=== PATIENT | female | born 1960 | race Caucasian/White ===

== ENCOUNTER 2018-10-09 13:31 | Observation (INO) | payer MEDICARE, MEDICAID ==
[2018-10-09 16:38] VITALS: BMI 37.8
[2018-10-09] MEDS ORDERED: Acetaminophen 325 MG TAB PO PRN (17:03)
[2018-10-09] MEDS ORDERED: Temazepam 15 MG CAP PO PRN (17:08)
--- NOTE | 2018-10-09 18:05 | HP ---
DATE OF ADMISSION: 10/09/2018. PRIMARY CARE PHYSICIAN: None. CHIEF COMPLAINT: Multiple falls. HISTORY OF PRESENT ILLNESS: Patient is a pleasant 57-year-old female who presented to the [facility] ER earlier today with a history of multiple falls. She reports that she gets off balance as she is bending over to do things and is falling. Denies any dizziness. Denies any chest pain. Reports that she does have a previous history of multiple sclerosis and a previous stroke and has some residual mild left-sided weakness. She reports that she was seeing a neurologist when she lived in [place], but she moved to [place] in August and is yet to find a neurologist locally. Reports at least 6 falls in the last week. Denies any loss of consciousness. She was sent to [facility] for admission and MRI as [facility] does not have that capability. Also sent here for a Neurology consult. PAST MEDICAL HISTORY: Includes a diagnosis of multiple sclerosis in 1995, right -sided CVA in 2011 with some mild right-sided deficits reports a diagnosis of a seizure disorder, although she does not take any medications for seizures, reports right knee meniscus repair [address] Guido, reports hypertension, reports that she has 100% blockage on her left carotid. Reports urinary incontinence. Reports history of gallstones. PAST SURGICAL HISTORY: Reports knee surgery by Dr. Guido 2 months ago, gastric bypass in 2003. FAMILY HISTORY: Mother has a history of diabetes type 2. Cardiac history including an [place] and heart failure. Father history of diabetes type 2. Brother , significant for alcohol abuse. She has no children. CURRENT MEDICATIONS: Include aspirin 81 mg p.o. daily, clonidine 0.1 mg once a day, gabapentin 800 mg 3 times a daily, lisinopril 10 mg p.o. daily, metoprolol 25 mg half tablet 2 times a day, Celexa 10 mg p.o. daily, naproxen 500 mg b.i.d. , Topamax 50 mg b.i.d., Ultram 50 mg as needed, Restoril 50 mg once a day at bedtime, Benadryl 25 mg once a day at bedtime, Detrol 2 mg b.i.d., potassium gluconate 595 mg once a day, Tessalon Perles t.i.d. p.r.n. cough. ALLERGIES: LORTAB, OXYCODONE, SULFA. REVIEW OF SYSTEMS: GENERAL: The patient denies chills or fever. EYES: Denies any vision changes. ENT: Denies any nose, throat, ear pain, or changes. CARDIOVASCULAR: Denies any chest pain or palpitations. RESPIRATORY: Denies any cough or shortness of breath. GASTROINTESTINAL: Denies any abdominal pain, constipation, or diarrhea. MUSCULOSKELETAL: Reports multiple falls. SKIN: Denies any skin changes or rashes. NEUROLOGIC: Denies any focal weakness. Denies any paresthesias. ENDOCRINE: Denies any negative review of systems. PSYCH: Negative review of systems. Otherwise, all other review of systems is negative, unless listed in the HPI. PHYSICAL EXAMINATION: VITAL SIGNS: Blood pressure 170/110, pulse 58, respiratory rate 16, temperature 98.2, pulse ox 99 on room air. GENERAL: Patient is in no apparent distress. HEENT: Head is atraumatic, normocephalic. Eyes: Eyelids are normal to inspection. Pupils are equally round and reactive to light. Extraocular muscles are intact. Horizontal nystagmus present. ENT: Nose exam is normal. No nasal deformity. Pharynx is normal. Mucous membranes are moist. NECK: Normal range of motion. Trachea is midline. RESPIRATORY/CHEST: Breath sounds are clear. No wheezing. No rales. CARDIOVASCULAR: Normal rate and rhythm. Heart sounds are normal. ABDOMEN: nontender on palpation. Bowel sounds are normal. No peritoneal signs. BACK: Normal range of motion. No CVA tenderness. EXTREMITIES: Upper extremity, normal range of motion. Motor strength is slightly weaker on the right arm which patient reports is chronic. Lower extremity, normal range of motion. Motor strength slightly weaker in the right leg which is also chronic. NEUROLOGIC: Patient is oriented to person, place, and time. Speech is normal. Focal deficits include the slight weakness in the right arm and right leg which is chronic, mild horizontal nystagmus which is present ASSESSMENT AND PLAN: 1. Multiple falls, most likely related either to an multiple sclerosis flare, possible transient ischemic attack. We will order an MRI of the brain. We will also obtain Neurology consult. 2. Hypertension. We will continue home medication. 3. Urinary incontinence. We will continue home medication. We will begin GI and DVT prophylaxis. Hospital course will depend on clinical findings. LILIANA
[2018-10-09] MEDS: Famotidine 20 MG TAB PO SCH (21:40)
[2018-10-10] MEDS ORDERED: traMADol HCl 50 MG TAB PO PRN (03:23)
[2018-10-10 06:19] LABS: #Eosinphils 0.2 thou/uL (0.0-0.7); #Lymphocytes 1.1 thou/uL (1.20-3.40); #Monocytes 0.5 thou/uL (0.11-0.59); #Neutrophils 3.8 thou/uL (1.40-6.50); %Basophils 0.4 % (0.0-1.0); %Eosinophils 2.7 % (0.0-10.0); %Lymphocytes 19.5 % (21.0-51.0); %Monocytes 8.3 % (0.0-10.0); Hemoglobin 12.8 g/dL (12.0-16.0); Mean Corpuscular HGB CONC 30.2 g/dL (32.0-36.0); Mean Corpuscular Volume 86.3 fL (78.0-98.0); Mean Platelet Volume 7.7 fL (7.4-10.4); Platelet Count 356 thou/uL (130-400); RBC Distribution Width 15.8 % (11.5-14.5); White Blood Cell (WBC) Count 5.6 thou/uL (4.8-10.8)
[2018-10-10 06:28] LABS: Anion Gap 13 mmol/L (10-20); BUN (Urea Nitrogen) 7 mg/dL (9.8-20.1); Calc. Creatinine Clearance 132 mL/min (70-130); Calcium 9.2 mg/dL (7.8-10.44); Carbon Dioxide 22 mmol/L (22-29); Chloride 109 mmol/L (98-107); Estimated GFR-MDRD 78; Glucose 108 mg/dL (70-105); Potassium 3.8 mmol/L (3.5-5.1); Sodium 140 mmol/L (136-145)
[2018-10-10] MEDS: Famotidine 20 MG TAB PO SCH ×2 (09:35→20:05)
--- NOTE | 2018-10-10 12:28 | ULT ---
CAROTID ULTRASOUND WITH GRAYSCALE AND DOPPLER DUPLEX COLORFLOW IMAGING SPECTRAL ANALYSIS PERFORMED: CLINICAL INDICATION: History of left carotid stenosis and vascular disease with history of falls. FINDINGS: There is scattered atherosclerotic plaque, some of which is calcified, producing shadowing, which luevano s limit assessment for the velocities. PEAK SYSTOLIC VELOCITY (CM/S): Right CCA 64 Left CCA 37 Right ICA 49 Left ICA 31 There is antegrade flow within the visualized bilateral vertebral arteries. IMPRESSION: 1. No hemodynamically significant stenosis of the right internal carotid artery. 2. No hemodynamically significant stenosis of the left internal carotid artery. POS: DAGOBERTO
--- NOTE | 2018-10-10 12:45 | MRI ---
MRI BRAIN WITH AND WITHOUT CONTRAST: HISTORY: Possible multiple sclerosis FLAIR. Multiple falls. COMPARISON: None. FINDINGS: No hemorrhage on the axial gradient echo sequence. Calvarium has a normal marrow signal intensity. Midline brain parenchymal structures are unremarkabl e. No parenchymal mass, mass effect, or midline shift. Brain volume is age appropriate. There are jez cic and gliotic changes involving the left cerebrum white matter due to remote insult. There is asso ciated T2 and FLAIR hyperintensity. Additionally, there are areas of T2 and FLAIR white matter hyper intensity. The distribution does favor demyelinating process. No restricted diffusion or enhancemen t to suggest active demyelination. Visualized cervical cord does not demonstrate any abnormal enhancement. Central arterial flow voids are maintained. Absent restricted diffusion. Adequate aeration of the sinuses and mastoid air cells. IMPRESSION: 1. White matter hyperintensities, without associated enhancement or restricted diffusion. No eviden ce of active demyelination. 2. Malacic and gliotic change involving the left centrum semiovale likely due to remote insult. POS: [facility]
[2018-10-10 16:14] VITALS: TEMP 98.7
[2018-10-10] MEDS ORDERED: cloNIDine 0.1 MG TAB PO SCH (20:00)
[2018-10-10] MEDS ORDERED: hydrALAZINE 25 MG TAB PO SCH (20:00)
--- NOTE | 2018-10-10 20:51 | CON ---
DATE OF CONSULTATION: 10/10/2018 CONSULTING PHYSICIAN: Hospitalist Service. IMPRESSION: 1. History of trigeminal neuralgia. 2. History of multiple sclerosis with chronic ataxia. 3. Probable accentuated ataxia secondary to Neurontin. PLAN: 1. Discontinue Neurontin. 2. Trileptal 300 mg twice a day, titrate as needed for pain control. 3. Rehab transfer. HISTORY OF PRESENT ILLNESS: Ms. Root is a 57-year-old white female who reports having neurologic sy mptoms dating back to 1996, she developed trigeminal neuralgia type pain. She underwent a workup at that time in [place] and was subsequently diagnosed with multiple sclerosis. She apparently develope d ataxia sometime following the neuralgia, but it is uncertain as to the onset time. Her symptoms gracia ve been persistent over the years. She was put on the gabapentin for management of the trigeminal ne uralgia. Her dose has been increased steadily for pain control over the last several months. She gracia s been having increased falls in that necessitated for coming to the emergency room for evaluation. She had routine lab work that was unremarkable. Her MRI of the brain showed periventricular white ma tter lesions on the left more so than the right with evidence of black hole formation. There was no active demyelination or acute ischemic change. Carotid ultrasound is clear. PAST MEDICAL HISTORY: Otherwise, negative. SOCIAL HISTORY: Unremarkable. ALLERGIES: OXYCODONE, SULFA, HYDROCODONE. MEDICATIONS: Medication list was reviewed. REVIEW OF SYSTEMS: Otherwise, negative for headache, nausea, vomiting, vertigo, difficulty swallowin g, difficulty speaking, double vision, chest pain or shortness of breath. PHYSICAL EXAMINATION: GENERAL: She is a well-nourished middle-aged woman in no distress. VITAL SIGNS: Stable. She is afebrile. HEENT: Within normal limits. NECK: Supple. NEUROLOGIC: She is alert and appropriate. Her speech is fluent and clear. Cranial nerves are intac t. Motor exam shows equal strength. No tremor dysmetrias present. Sensation is equal to touch. Sh e can walk with use of a walker. SUMMARY: This is a 57-year-old woman with a history of chronic ataxia secondary to probable multiple sclerosis. This is likely worsened by the higher doses of Neurontin. Hopefully, a change of medica tion, we will correct the situation. We happy to follow up with her as an outpatient.
[2018-10-10 22:24] VITALS: BP 137/94
--- NOTE | 2018-10-11 11:19 | DIS ---
DATE OF ADMISSION: 10/09/2018 DATE OF DISCHARGE: 10/10/2018 PRIMARY CARE PHYSICIAN: Dr. Hogue in [place]. CONSULTANTS: Dr. Dandre Fernandez PROCEDURES: The patient had a brain MRI that showed white matter hyperintensities without associated enhancement or restricted diffusion. No evidence of active demyelination. The patient also had a carotid Doppler study which showed no hemodynamically significant stenosis of either internal carotid artery. DISCHARGE DIAGNOSES: 1. Chronic ataxia in relation to a history of multiple sclerosis. 2. Probable accentuated ataxia secondary to Neurontin. 3. History of trigeminal neuralgia. 4. Hypertension. 5. Urinary incontinence. 6. History of right-sided cerebrovascular accident. REVIEW OF SYSTEMS: GENERAL: The patient denied any chills or fever. EYES: Denied any vision changes. ENT: Denied any nose, throat, ear pain or hearing changes. CARDIOVASCULAR: Denied any chest pain or palpitations. RESPIRATORY: Denied any cough or shortness of breath. GASTROINTESTINAL: Denied any abdominal pain, constipation, diarrhea, or vomiting. MUSCULOSKELETAL: Does report multiple falls. Denies hitting her head. SKIN: Denies any skin changes. Does have some ecchymosis in various age to extremities. NEUROLOGIC: Denies any focal weakness. Denies any paresthesias. ENDOCRINE: Denies any changes, negative review of systems. PSYCHIATRIC: Also negative. All other review of systems are negative, unless mentioned in the hospital course. PHYSICAL EXAMINATION: VITAL SIGNS: Temperature 98.2, pulse 66, respirations 16, blood pressure 163/ 94. Pulse ox 96% on room air. GENERAL: The patient is in no apparent distress. She is lying comfortably on the bed. HEENT: Head is atraumatic, normocephalic. Eyes: Eyelids are normal to inspection. Pupils are equally round and reactive to light. Extraocular muscles are intact. Horizontal nystagmus is present. ENT: Mucous membranes are moist. NECK: Normal range of motion. Trachea is midline. RESPIRATORY: Breath sounds are clear bilaterally. No wheezes, no rales noted. CARDIOVASCULAR: Normal rate and rhythm. Heart sounds are normal. ABDOMEN: Nontender on palpation. Bowel sounds are heard in all quadrants. No peritoneal signs. BACK: Normal range of motion. No CVA tenderness. EXTREMITIES: Upper extremities, normal range of motion. Motor strength is slightly weaker on the right arm 4/5, lower extremity normal range of motion. Motor strength is 4/5 on the right leg. NEUROLOGIC: The patient is oriented to person, place and time. Speech is normal. Focal deficits include slight weakness in the right leg and arm which is chronic, nystagmus which is present and horizontal. HOSPITAL COURSE: The patient reported to the emergency room in [place] on 10/09/2018 complaining of multiple falls. She reported that she was getting off balance primarily when she was bending over to pick things up. She denied any dizziness. She denied any chest pain. She does have a history of multiple sclerosis and a previous stroke and has some residual right-sided weakness. She reports that she was seeing a neurologist when she lived in [place], but when she moved to the [facility] in [place], she has not found a neurologist locally. She did report about 6 falls in the last week. Denies any loss of consciousness, denies hitting her head. She was admitted to the observation unit after being transferred to [facility] ER where we obtained an MRI of her brain and Dr. Fernandez of Neurology was consulted. He suspected that the dizziness and multiple falls were due to her Neurontin that she took every day, so he discontinued that and we added Trileptal. The patient was amenable to inpatient rehab after being discharged here for more extensive physical therapy and occupational therapy. The patient remained stable. Vital signs were stable and the patient was discharged here to the inpatient rehabilitation [facility]. The patient will be sent to the rehab with current home medications including aspirin 81 mg p.o. daily, Klonopin 0.1 mg once a daily, lisinopril 10 mg p.o. daily, metoprolol 25 mg 1/2 tab 2 times a day, Celexa 10 mg p.o. daily, naproxen 500 mg b.i.d., Topamax 50 mg b.i.d., Ultram 50 mg as needed, Restoril 15 mg once a day at bedtime, Benadryl 25 mg once a day at bedtime as needed, Detrol 2 mg b.i.d., potassium gluconate 595 mg once a day, Tessalon Perles t.i.d. as needed for cough. She was discontinued on her gabapentin. Dr. Fernandez added Trileptal 300 mg p.o. b.i.d. ALLERGIES: She has allergies to LORTAB, OXYCODONE and SULFA. The patient's condition on discharge was stable. DISCHARGE INSTRUCTIONS: The patient will be discharged to inpatient rehab at [facility], do a referral. She is to see Dr. Swartz in [place] after being released from the rehab and also to follow up with Dr. Fernandez at his earliest convenience appointment. LILIANA
== END 2018-10-10 21:03 ==
LOC: ERS 13:31 → 2SW 16:31
PROVIDERS: ADMIT Family Medicine; ATTEND Family Medicine
DX: G35 Multiple sclerosis (principal); R27.0 Ataxia, unspecified; I69.351 Hemiplegia and hemiparesis following cerebral infarction affecting right dominant side; G40.909 Epilepsy, unspecified, not intractable, without status epilepticus; I10 Essential (primary) hypertension; R32 Unspecified urinary incontinence; Z91.81 History of falling; Z79.01 Long term (current) use of anticoagulants; Z79.1 Long term (current) use of non-steroidal anti-inflammatories (NSAID); Z79.82 Long term (current) use of aspirin; Z79.899 Other long term (current) drug therapy; Z88.2 Allergy status to sulfonamides; Z88.5 Allergy status to narcotic agent; Z88.8 Allergy status to other drugs, medicaments and biological substances
CPT/HCPCS: 70553; 80048; 85025; 93880; 97116; 97139; 99285; G0378 ×2; G8978; G8979; G8987; G8988; 36415; G8996-GN-CH; G8997-GN-CH

== ENCOUNTER 2018-11-20 14:34 | Inpatient (IN) | payer MEDICARE, MEDICAID ==
[2018-11-20] MEDS ORDERED: levETIRAcetam 500 MG/100 ML PREMIX BAG ONE (14:38)
[2018-11-20 14:59] LABS: #Basophils 0.1 thou/uL (0.0-0.2); #Lymphocytes 1.1 thou/uL (1.20-3.40); #Monocytes 0.6 thou/uL (0.11-0.59); #Neutrophils 7.5 thou/uL (1.40-6.50); %Basophils 0.6 % (0.0-1.0); %Eosinophils 0.5 % (0.0-10.0); %Lymphocytes 11.4 % (21.0-51.0); %Monocytes 6.3 % (0.0-10.0); %Neutrophils 81.3 % (42.0-75.0); Hemoglobin 12.6 g/dL (12.0-16.0); Mean Corpuscular HGB CONC 32.7 g/dL (32.0-36.0); Mean Corpuscular Hemoglobin 28.1 pg (27.0-31.0); Mean Corpuscular Volume 86.2 fL (78.0-98.0); Mean Platelet Volume 6.5 fL (7.4-10.4); Platelet Count 364 thou/uL (130-400); RBC Distribution Width 13.9 % (11.5-14.5); Red Blood Cell (RBC) Count 4.49 mill/uL (4.20-5.40); White Blood Cell (WBC) Count 9.2 thou/uL (4.8-10.8)
[2018-11-20] MEDS ORDERED: hydrALAZINE 20 MG/ML VIAL ONE (15:01)
[2018-11-20 15:03] LABS: INR-International Normal Ratio 1.1; Prothrombin Time 13.8 SEC (12.0-14.7)
[2018-11-20 15:05] LABS: Actual Bicarbonate (HCO3a) 16.9 mEq/L (22-28); Analyzer IN Cardio ER; Base Excess (BEa) -6.1 mEq/L (-2.0 to +3.0); CO2 Tension 26.5 mmHg (35.0-45.0); Calcium, Ionized 0.99 mmol/L (1.12-1.30); Carboxyhemoglobin (COHb) 0.3 gm% (0.0-3.0); Hemoglobin (Hb) 11.9 g/dL (12.0-16.0); O2 Tension (PaO2) 472.7 mmHg (80.0-100.0); Potassium - ABG Lab 2.96 mmol/L (3.70-5.30); pH, Arterial 7.42 (7.35-7.45)
[2018-11-20] MEDS ORDERED: manNITOL 20% 0 ML ONE (15:11)
[2018-11-20] MEDS ORDERED: manNITOL 20% 500 ML ONE (15:12)
[2018-11-20 15:15] LABS: ALT (SGPT) 10 U/L (8-55); AST (SGOT) 22 U/L (5-34); Albumin 3.3 g/dL (3.5-5.0); Alkaline Phosphatase 153 U/L (40-150); Anion Gap 16 mmol/L (10-20); BUN (Urea Nitrogen) 9 mg/dL (9.8-20.1); Bilirubin, Total 0.4 mg/dL (0.2-1.2); Calc. Creatinine Clearance 0 mL/min (70-130); Calcium 8.6 mg/dL (7.8-10.44); Carbon Dioxide 14 mmol/L (22-29); Chloride 98 mmol/L (98-107); Estimated GFR-MDRD 60; Globulin 3.4 g/dL (2.4-3.5); Glucose 179 mg/dL (70-105); Lipase 11 U/L (8-78); Potassium 3.2 mmol/L (3.5-5.1); Protein, Total 6.7 g/dL (6.0-8.3); Sodium 125 mmol/L (136-145)
--- NOTE | 2018-11-20 15:55 | RAD ---
PORTABLE AP CHEST XRAY: DATE: 11/20/2018. HISTORY: Intubation and central line placement. COMPARISON: Chest x-ray from [facility] 11/20/2018. FINDINGS: Endotracheal tube remains in place, but the tip of the endotracheal tube overlies the origin of the r ight mainstem bronchus and should be withdrawn by approximately 1.5 cm. Right subclavian central mylene ous catheter is noted in place with tip overlying the expected location of the SVC. Nasogastric tube is noted in place, a portion of which is coiled overlying the neck, and the tip overlies the distal esophagus. Nasogastric tube should also be readjusted and advanced into the stomach. Cardiac silhouette is magnified by projection. Pulmonary vasculature is within normal limits. The l ungs are clear. Remote left-sided rib fracture is present. IMPRESSION: 1. Endotracheal tube in place which is overlying the origin of the right mainstem bronchus and shoul d be withdrawn. 2. Nasogastric tube in place, but the tip overlies the distal esophagus should be advanced. 3. Right subclavian central venous catheter in place without evidence of pneumothorax. 4. No acute cardiopulmonary process. 5. Remote left-sided rib fracture. 6. The above findings were discussed with Dr. Marie in the emergency department on 11/20/2018 at 150 3 hours. CODE CR POS: DAGOBERTO
--- NOTE | 2018-11-20 16:38 | HP ---
ATTENDING SURGEON: Dr. Chavarria. CONSULTATION: Neurosurgery, Dr. Gillis. HISTORY OF PRESENT ILLNESS: The patient is a 57-year-old female with a history of multiple sclerosis and a previous stroke, who up until 3 weeks ago was on Eliquis, who reportedly fell from her wheelchair while at a senior care. The patient was being brought to the emergency department in [place], when just prior to the arrival, the patient started to have altered mental status and went from GCS of 15 into a decline, which eventually led to a seizure and becoming a GCS of 3. The patient underwent evaluation, examination there and was noted to have a large subdural hematoma with posttraumatic subarachnoid bleed. She was flown here to our facility for evaluation and resuscitation and we were asked to see her as a level 1 trauma. The majority of this information was gleaned from previous medical records. There are no family available at this time. ALLERGIES: HYDROCODONE AND OXYCODONE. CURRENT MEDICATIONS: Unknown. PAST MEDICAL HISTORY: Multiple sclerosis, right-sided CVA in 2011, seizure disorder, hypertension, carotid insufficiency with one report saying 100% blockage on her left carotid. SURGICAL HISTORY: Gastric bypass and right knee surgery. FAMILY MEDICAL HISTORY: Diabetes, coronary artery disease. SOCIAL HISTORY: Again, the patient is a senior care resident. There is no reported history of drug, tobacco, or alcohol use. PHYSICAL EXAMINATION: VITAL SIGNS: Blood pressure 128/88, respirations 22, oxygen saturations 100% on the ventilator, heart rate 78, temperature is 97.0. Of note, the patient's blood pressure from the time of arriving at [place] ER has had a systolic as high as in the 200s and as low as 60. Since being in our facility, she again has had a very labile blood pressure at times and requiring a short dose of vasopressors and fluid boluses, and other times, again markedly elevated, but not requiring any further treatment. GENERAL: The patient is lying in the ER bed, intubated with an orogastric tube in place. She has been a GCS 3T since her arrival. HEENT: Head is normocephalic and atraumatic. Eyes, pupils are fixed and dilated. Nose is atraumatic without discharge. Ears are atraumatic without discharge. Oropharynx, an OG tube and an ET tube are in place. NECK: Trachea is in midline. No JVD. CHEST: Clear to auscultation with clear breath sounds bilaterally. HEART: Regular rate and rhythm. ABDOMEN: Soft, flat, with hypoactive bowel sounds. PELVIS: Stable. EXTREMITIES: Capillary refill is less than 3 seconds. Pulses are 2+. BACK: Atraumatic and nontender. LABORATORY RESULTS: White blood cell count 9.2, hemoglobin 12.6, hematocrit 38.7, platelets 364. Sodium 125, potassium 3.2, chloride 98, CO2 of 14, BUN 9, creatinine 0.95, glucose 179. LFTs are unremarkable. PTT 22, PT 14, INR 1.1. Lipase 11. RADIOGRAPHIC FINDINGS: CT of the brain without contrast shows a large right cerebral convexity subdural hematoma and associated posttraumatic subarachnoid hemorrhage. There is a shift to the midline structures by at least 2 cm right to left. There is uncal herniation. There is no evidence of fracture. CT of the C-spine without contrast shows degenerative changes of the cervical spine. No acute osseous abnormalities are demonstrated. AP chest shows no acute findings. Endotracheal tube is in place. ASSESSMENT: 1. Status post fall. 2. Large subdural hematoma with 2 cm midline shift and posttraumatic subarachnoid hemorrhage. 3. Respiratory failure requiring full mechanical ventilatory support. 4. History of previous stroke. 5. History of multiple sclerosis. PLAN: Plan will be to admit the patient to the surgical floor. Continue full mechanical ventilatory support. Mannitol was initiated in the emergency department. Per consultation with Neurosurgery and review of her CT and physical exam findings, it was determined that this is very likely a nonsurvivable injury and is nonoperative in nature. We will continue medical management and discuss with family further treatment and care. The evaluation, examination, laboratory, and radiographic findings were done with Dr. Chavarria in the emergency department as he was here prior to the patient's arrival. Job ID: [id number]
[2018-11-20] MEDS ORDERED: Dextrose 5% in Water 1,000 ML IV PRN (17:10)
[2018-11-20] MEDS ORDERED: Dextrose 50% Abboject 50 ML SYRINGE SLOW IVP PRN (17:10)
[2018-11-20] MEDS ORDERED: Ondansetron ODT 4 MG TAB PO PRN (17:10)
[2018-11-20] MEDS ORDERED: Ondansetron PF 4 MG/2 ML Vial IVP PRN (17:10)
[2018-11-20 17:30] LABS: ALV-art Gradient 207.175 (0-20); Puncture Site L.B.
[2018-11-20] MEDS: Sodium Chloride 0.9% 1,000 ML IV SCH (18:04)
[2018-11-20 18:31] LABS: Sodium 127 mmol/L (136-145)
[2018-11-20 18:33] VITALS: BMI 34.0
[2018-11-20] MEDS ORDERED: Potassium Chloride 40 MEQ in Premix Bag 1 BAG IVPB SCH (20:00)
[2018-11-20] MEDS: hydrALAZINE 20 MG/ML VIAL SLOW IVP PRN (20:10)
--- NOTE | 2018-11-20 20:54 | CON ---
DATE OF CONSULTATION: 11/20/2018 HISTORY OF PRESENT ILLNESS: The patient is a 57-year-old female with a past medical history of multiple sclerosis and prior CVA with right-sided deficits, who lives at the retirement and was transferred to our facility following evaluation for head injury with acute right subdural hematoma. shelter reports approximately 2 hours ago, the patient was trying to stand up out of her wheelchair when she suddenly fell forward striking her head on the ground. She was transitioned to the [place] ER for further evaluation. Shortly after her arrival her neurologic exam began to decline, and she became unresponsive. She required intubation at that time. The patient also had seizure activity and was given [address] head was done on arrival, which showed a large right-sided subdural hematoma with mass effect and midline shift. She was previously taking Eliquis for her prior CVAs, but reportedly stopped this medication 3 weeks ago. She does take aspirin daily and was treated with TXA prior in the [place] ER. She was also given rocuronium and 300 mcg of fentanyl prior to intubation. I am seeing the patient upon arrival to the [facility] ER. The patient currently has a GCS of 3. She is intubated. No eye opening. No motor response is appreciated. She has no gag reflex and was not overbreathing on the ventilator. Both pupils are fixed and dilated. She has been started on 100 g of mannitol, which is currently running, ordered by the Trauma Service. There was also establishing central line on my arrival. PAST MEDICAL HISTORY: Multiple sclerosis, prior CVA with residual right-sided deficits, seizure disorder, hypertension. PAST SURGICAL HISTORY: Right knee surgery, gastric bypass. FAMILY HISTORY: Noncontributory. SOCIAL HISTORY: The patient lives at the retirement. She does not smoke, drink, or use any drugs. ALLERGIES: SHE IS ALLERGIC TO HYDROCODONE, LORTAB, OXYCODONE, AND SULFA. REVIEW OF SYSTEMS: Unobtainable. PHYSICAL EXAMINATION: VITAL SIGNS: BP is 157/96. The patient is currently being mechanically ventilated. She is 100% on the ventilator. Pulse 77. CONSTITUTIONAL: The patient is in significant distress. She is unresponsive. She has a GCS of 3. HEENT: Head, normocephalic, atraumatic. Eyes, pupils are fixed, dilated and nonreactive. ENT, endotracheal tube is in place. No gag reflex is appreciated. CARDIAC: Regular rate and rhythm. RESPIRATORY: She has symmetric chest expansion and is currently being mechanically ventilated. MUSCULOSKELETAL: No obvious deformities. She has no motor response to noxious stimuli. NEUROLOGIC: The patient has GCS of 3. She is otherwise unresponsive. ASSESSMENT AND PLAN: This is a 57-year-old female with past medical history of multiple sclerosis and prior cerebrovascular accident, currently taking aspirin daily, who suffered a mechanical fall from her wheelchair and was found to have a large right-sided subdural hematoma with significant amount of midline shift and also scattered subarachnoid hemorrhage. I discussed the patient's presentation, exam and imaging with Dr. Gillis. He also reviewed these images. Unfortunately, the patient has suffered an extensive intracranial event. Considering this extensive event and this is unlikely to be survivable,and we are not recommending any acute neurosurgical intervention. We will continue to support the patient medically and patient will be transitioned to the Critical Care floor. The family will be mobilized and Dr. Gillis will meet with them to discuss end of life care further. Job ID: [id number] [facility]
--- NOTE | 2018-11-20 21:45 | CON ---
DATE OF CONSULTATION: CONSULTING PHYSICIAN: Trauma Service. REASON FOR CONSULTATION: Critical care and ventilator management. HISTORY OF PRESENT ILLNESS: A 57-year-old female who has multiple sclerosis. Apparently, she fell from a wheelchair. She sustained a large right-sided subdural hematoma associated with subarachnoid hemorrhage and extensive midline shift. I am told by the Trauma Service that Neurosurgery considers this inoperable. She was intubated and masked for able for being sent over here. PAST MEDICAL HISTORY: 1. Multiple sclerosis diagnosed in 1995. 2. Stroke in 2011. 3. Seizure disorder. 4. Multiple falls in the past. 5. Peripheral vascular disease. 6. Urinary incontinence. 7. Cholelithiasis. PAST SURGICAL HISTORY: 1. Knee surgery 2 months ago. 2. Gastric bypass surgery in 2003. FAMILY MEDICAL HISTORY: Remarkable for diabetes mellitus type 2, heart disease, congestive heart failure, alcohol abuse. MEDICATIONS: Prior to admission list is not available for review at this time. CODE STATUS: The patient has out of hospital DNR. There has been an attempt to notify family and so far we have not heard anything back regarding current admission. I believe she was intubated in the field without knowledge of the DNR. ALLERGIES: 1. HYDROCODONE. 2. OXYCODONE. 3. SULFA DRUGS. REVIEW OF SYSTEMS: Cannot be obtained because of the patient's altered mental status. PHYSICAL EXAMINATION: VITAL SIGNS: Heart rate 93, blood pressure 174/118, O2 saturation 100%, and respiratory rate 23. NEUROLOGICAL: She does have some spontaneous respirations. She has a very weak gag and a cough reflex. She has some extensor posturing. She will not withdraw to pain in any of her 4 extremities. Her pupils are 4 mm and nonreactive to light. She does not have an oculocephalic reflex that I can elicit. HEENT: Otherwise unremarkable. NECK: No JVD. CHEST: Clear. CARDIAC: S1 and S2 regular without murmur. ABDOMEN: Soft and nontender. EXTREMITIES: No clubbing, cyanosis, or edema. LABORATORY DATA: White blood cell count 9.2, hematocrit 38.7, and platelet count 364. INR 1.1, PTT 22. Sodium 125, potassium 3.2, chloride 98, CO2 of 14, BUN 9, creatinine 0.9, glucose 179, anion gap is 16, alkaline phosphatase 153. BNP 13. DIAGNOSTIC DATA: X-ray showed a right mainstem intubation. Her endotracheal tube has been pulled back. Of note, this patient was given mannitol in the ER. ASSESSMENT: 1. Acute respiratory failure related to the patient being unresponsive from the subdural hematoma and subarachnoid hemorrhage. 2. Multiple sclerosis. 3. Near brain state. PLAN: Continuing supportive care. She is currently on appropriate ventilator settings. She does not require any sedation. My guess is she will herniate and advance to brain very soon. She has an out of hospital DNR, so I would suspect that reasonable family members would want to withdraw care. Job ID: [id number]
[2018-11-20] MEDS ORDERED: Sodium Chloride 0.9% 500 ML IV SCH (22:45)
[2018-11-21] MEDS: Metoprolol Tartrate 5 MG/5 ML VIAL IVP PRN ×2 (01:11→07:05)
[2018-11-21 01:34] LABS: #Lymphocytes 1.1 thou/uL (1.20-3.40); #Neutrophils 8.8 thou/uL (1.40-6.50); %Basophils 0.2 % (0.0-1.0); %Eosinophils 0.2 % (0.0-10.0); %Lymphocytes 10.1 % (21.0-51.0); %Monocytes 9.4 % (0.0-10.0); %Neutrophils 80.2 % (42.0-75.0); Hemoglobin 14.3 g/dL (12.0-16.0); Mean Corpuscular HGB CONC 33.4 g/dL (32.0-36.0); Mean Corpuscular Hemoglobin 27.5 pg (27.0-31.0); Mean Corpuscular Volume 82.1 fL (78.0-98.0); Mean Platelet Volume 6.7 fL (7.4-10.4); Platelet Count 405 thou/uL (130-400); RBC Distribution Width 14.2 % (11.5-14.5)
[2018-11-21 01:35] LABS: Sodium 140 mmol/L (136-145)
[2018-11-21] MEDS: Sodium Chloride 0.9% 1,000 ML IV SCH ×3 (01:36→18:48)
[2018-11-21 01:45] LABS: Anion Gap 19 mmol/L (10-20); BUN (Urea Nitrogen) 7 mg/dL (9.8-20.1); Calc. Creatinine Clearance 110 mL/min (70-130); Calcium 9.4 mg/dL (7.8-10.44); Carbon Dioxide 15 mmol/L (22-29); Chloride 110 mmol/L (98-107); Estimated GFR-MDRD 68; Glucose 154 mg/dL (70-105); Potassium 3.5 mmol/L (3.5-5.1); Sodium 140 mmol/L (136-145)
[2018-11-21 06:54] LABS: Sodium 140 mmol/L (136-145)
[2018-11-21] MEDS: hydrALAZINE 20 MG/ML VIAL SLOW IVP PRN (09:36)
--- NOTE | 2018-11-21 09:54 | PRG ---
DATE OF SERVICE: 11/21/2018 SUBJECTIVE: Sara Root is a 57-year-old female, intubated in the vent. She has had a massive intracerebral hemorrhage following a fall. Her baseline problem is that she has multiple sclerosis. She fell from a wheelchair. I spoke to her brother, Vishnu Root in [place]. She apparently has no other relatives. She has never been and has no kids. She DNR. She was made a DNR right now. OBJECTIVE: VITAL SIGNS: Blood pressure is 164/100, pulse 80, respiratory rate 18, and afebrile. CHEST: Decreased breath sounds. No wheezing. CARDIAC: Normal S1 and S2. No gallops. ABDOMEN: Soft. HEENT: Pupils are pinpoint and reactive. LABORATORY DATA: White count 11,000 and H and H are 14 and 42, platelet counts 405. PO2 was 472, pCO2 is 26% on FiO2 at rate of 22, 100% FiO2. Lytes are normal. IMPRESSION: 1. Massive intracerebral hemorrhage secondary to a fall. 2. History of multiple sclerosis. PLAN: As per the brother, he is in the process of trying to contact . She is a DNR, at this stage nothing additional to offer. Consider extubation in the next 24 to 48 hours once we have all the case management social worker and friends and family all in agreement. One-half hour critical time. Job ID: [id number]
--- NOTE | 2018-11-21 12:02 | PRG ---
DATE OF SERVICE: 11/21/2018 SUBJECTIVE: The patient was seen and examined. I agree with Sandra Henderson's evaluation on 11/20/2018. The patient is a 57-year-old woman with multiple sclerosis, who is wheelchair dependent in a snf. She has been relatively estranged from her family, and apparently, had a DNR request according to the patient's brother who was communicated with by phone by Dr. Tsang this morning. The patient fell and sustained a massive subdural hematoma. Upon admission, her pupils were fixed and dilated, and she had no corneal response or volitional motor response. CT scan revealed a massive right subdural hematoma with over 2 cm of midline shift. IMPRESSION AND PLAN: Fatal subdural hematoma. There are no surgical options that would contribute to any meaningful improvement in her neurologic exam given the size of the subdural hematoma and the herniation syndrome. Currently, she does have some spontaneous respiration and some posturing with the right arm to noxious stimulus as well as some gag reflex. I do not anticipate progression to brain in any meaningful timeframe. I also do not anticipate any meaningful neurologic improvement. The patient's brother was communicated with by phone by Dr. Tsang, and based on her previously expressed wishes, they are planning to withdraw care once some logistic details have been worked out. I fully support this plan and I have no further recommendations from a neurosurgical perspective. Job ID: [id number]
[2018-11-21 12:30] LABS: Sodium 142 mmol/L (136-145)
--- NOTE | 2018-11-21 13:31 | HP ---
CHIEF COMPLAINT: Fall from sitting/standing with a large subdural hematoma. HISTORY OF PRESENT ILLNESS: This patient is a 57-year-old white female who was taken in transfer from [facility]. She had fallen at her senior care while trying to stand up out of her wheelchair and sustained a head injury. She had loss of consciousness sometime during her evaluation. CT scan showed a large subdural hematoma with extensive midline shift. She was intubated at the [facility] facility and transported to us. I was present on arrival in the emergency room and fully participated in the evaluation and resuscitation of the patient. Old medical records from recent hospitalization were reviewed as well. Please see the history and physical examination per STEVE Pimentel. I agree with all the findings and recommendations. She will be admitted to the Intensive Care Unit in critical and likely terminal condition. Additionally, I placed a right subclavian central line while we were awaiting Neurosurgery decisions regarding the advisability of proceeding with surgery. This is dictated separately. Job ID: [id number]
--- NOTE | 2018-11-21 13:36 | OP ---
DATE OF PROCEDURE: 11/20/2018 PREOPERATIVE DIAGNOSIS: Large subdural hematoma with hemodynamic instability. POSTOPERATIVE DIAGNOSIS: Large subdural hematoma with hemodynamic instability. PROCEDURE PERFORMED: Placement of right subclavian 7-Kazakh triple-lumen central line. ANESTHESIA: 1% lidocaine. INDICATIONS: The patient is a 57-year-old white female, who had just been received in the emergency room from air ambulance. She was somewhat hemodynamically unstable recording both hypotension and hypertension. She had relatively poor peripheral access. I decided to place a central line for better central access as it was anticipated that she would be undergoing surgery and potentially a lengthy hospitalization. DESCRIPTION OF PROCEDURE: Consent was not obtained as this was an emergency procedure. She was placed in Trendelenburg position. Right chest was prepped with ChloraPrep and draped in a sterile fashion. Local anesthetic was infiltrated. A large-gauge needle was passed under the clavicle into the subclavian vein on the initial pass. A guidewire was passed through the needle. Needle was removed, skin was incised, tract was dilated, and a 7-Kazakh triple-lumen central line was passed over the wire uneventfully. The catheter was affixed at the skin exit site with 3-0 silk suture. Sterile occlusive dressing was applied. All three lumens aspirated blood freely and were flushed with heparinized saline. There were no complications and postprocedure x-ray shows good placement of the catheter. Job ID: [id number]
[2018-11-21 15:09] VITALS: BP 142/105
[2018-11-22] MEDS: Sodium Chloride 0.9% 1,000 ML IV SCH (01:53)
[2018-11-22] MEDS ORDERED: Sodium Chloride 0.9% 500 ML IVPB SCH (02:00)
[2018-11-22 02:11] VITALS: TEMP 100.1
--- NOTE | 2018-11-23 12:39 | DIS ---
DATE OF ADMISSION: 11/20/2018 DATE OF DISCHARGE: 11/22/2018 SUMMARY DATE OF : 11/22/2018. ADMISSION DIAGNOSES: 1. Status post fall. 2. Large subdural hematoma with 2 cm midline shift and post-traumatic subarachnoid hemorrhage. 3. Respiratory failure requiring full mechanical ventilatory support. 4. History of previous stroke. 5. History of multiple sclerosis. CONSULTATIONS: 1. Neurosurgery, Dr. Gillis. 2. Pulmonary Critical Care, Dr. Mccurdy. HOSPITAL COURSE: In summary, the patient was a 57-year-old female who had a history of multiple sclerosis and a previous stroke who up until three weeks prior to this presentation was on Eliquis. She was reportedly in a half-way due to extremely restricted mobility. According to the caregiver, the patient slid out of her wheelchair and may have struck her head. Though the caregiver after the initial evaluation in the emergency department when she was present, clarified that the patient did not strike her head. Regardless, the patient underwent evaluation and examination as a level one trauma activation as she had become unresponsive at the [place] [facility], brought here, underwent evaluation and examination and was noted to have the above injuries. Neurosurgical evaluation felt that this was an operative injury and was likely going to be the demise of the patient. The patient will be admitted to the critical care unit until family could be reached. It was again found out once the caregiver made into the hospital and the details of the patient's medical history and wishes that she was DNR. The patient was continued to be attempts at resuscitation until the family was reached. They did confirm that she was a DNR and that they would like to withdrawal care once they had made arrangements between the family. The family had not been in contact for quite a while and [place]. The patient would eventually succumb to her injury. Her heart rate and urinary output slowly dwindled and became nonresponsive to noninvasive procedures. The patient would eventually succumb to her injuries at 0455 hours on the date of , she passed quietly. The family was notified by nursing staff afterwards. Job ID: [id number]
--- NOTE | 2018-12-02 22:59 | EKG ---
Test Reason : Blood Pressure : / mmHG Vent. Rate : 076 BPM Atrial Rate : 076 BPM P-R Int : 188 ms QRS Dur : 092 ms QT Int : 438 ms P-R-T Axes : 030 -22 024 degrees QTc Int : 492 ms Normal sinus rhythm Moderate voltage criteria for LVH, may be normal variant Inferior infarct , age undetermined Abnormal ECG Confirmed by KORINA GONZALEZ, KAYDEN ([id number]), editorial manager LAURENCE VAUGHN ([id number]) on 12/02/2018 10:58:44 PM Referred By: Confirmed By:KAYDEN HUI MD
== END 2018-11-22 04:55 | disposition expired | DRG 82 ==
LOC: ERS 14:34 → CCU 15:09
PROVIDERS: ADMIT Specialist; ATTEND Specialist
PROC: 5A1945Z Respiratory Ventilation, 24-96 Consecutive Hours (ICD-10-PCS; principal; 2018-11-20)
PROC: 02HV33Z Insertion of Infusion Device into Superior Vena Cava, Percutaneous Approach (ICD-10-PCS; 2018-11-20)
PROC: 3E033XZ Introduction of Vasopressor into Peripheral Vein, Percutaneous Approach (ICD-10-PCS; 2018-11-20)
DX: J96.00 Acute respiratory failure, unspecified whether with hypoxia or hypercapnia; G35 Multiple sclerosis; Z51.5 Encounter for palliative care; I10 Essential (primary) hypertension; Z66 Do not resuscitate; G40.909 Epilepsy, unspecified, not intractable, without status epilepticus; I65.22 Occlusion and stenosis of left carotid artery; I95.9 Hypotension, unspecified; I73.9 Peripheral vascular disease, unspecified; F32.9 Major depressive disorder, single episode, unspecified; F41.9 Anxiety disorder, unspecified; Z88.5 Allergy status to narcotic agent; Z88.2 Allergy status to sulfonamides; Z86.73 Personal history of transient ischemic attack (TIA), and cerebral infarction without residual deficits; Z99.3 Dependence on wheelchair; Z98.84 Bariatric surgery status; Z79.82 Long term (current) use of aspirin; Z79.899 Other long term (current) drug therapy; W05.0XXA Fall from non-moving wheelchair, initial encounter; Y92.129 Unspecified place in nursing home as the place of occurrence of the external cause
CPT/HCPCS: 36415; 36430; 36556; 51702; 71045; 80048; 80053; 82805; 83690; 83880; 85025; 85610; 85730; 86850; 86900; 86901; 93005; 94002; 94003; 96365; 96375; 99292; G0390; J0360; J1953; J3480; J7799; P9048